=== PATIENT | female | born 1990 | race Caucasian/White ===

== ENCOUNTER → 2017-01-08 | Outpatient (CLI) | payer BC ==
[2017-01-08 21:08] LABS: BASO % 0.3 % (0.0-1.0); EOS # 0.1 K/mm3 (0.0-0.50); EOS % 0.9 % (0.0-3.0); LARGE UNSTAINED CELL # 0.2 K/mm3 (0.0-0.4); LARGE UNSTAINED CELL % 1.7 % (0.0-4.0); LYMPH # 2.8 K/mm3 (1.5-6.5); LYMPH % 31.4 % (24.0-44.0); MEAN CORPUSCULAR HEMOGLOBIN 29.8 pg (27.0-33.0); MEAN CORPUSCULAR HGB CONC 32.8 g/dl (32.0-36.5); MEAN CORPUSCULAR VOLUME 90.8 fl (80.0-96.0); MONO # 0.5 K/mm3 (0.0-0.8); MONO % 5.3 % (0.0-5.0); NEUTROPHILS # 5.1 K/mm3 (1.8-7.7); NEUTROPHILS % 60.3 % (36.0-66.0); PLATELET COUNT, AUTOMATED 251 k/mm3 (150-450); RED CELL DISTRIBUTION WIDTH 12.9 % (11.5-14.5); WHITE BLOOD COUNT 8.4 K/mm3 (4.0-10.0)
[2017-01-10 11:12] LABS: HBsAg Prenatal NEGATIVE (NEGATIVE)
[2017-01-10 14:22] LABS: HIV SCREEN CENTAUR NEGATIVE (NEGATIVE)
== END ==
LOC: M WUC 16:28
PROVIDERS: ATTEND Obstetrics & Gynecology
DX: Z34.81 Encounter for supervision of other normal pregnancy, first trimester (principal)

== ENCOUNTER 2017-01-11 08:20 | Emergency (ER) | payer BC, OTHER ==
[~2017-01-11] VITALS: Ht 165.1 cm; Wt 74.8 kg
[2017-01-11 09:42] LABS: MEAN CORPUSCULAR HEMOGLOBIN 30.1 pg (27.0-33.0); MEAN CORPUSCULAR HGB CONC 33.6 g/dl (32.0-36.5); MEAN CORPUSCULAR VOLUME 89.5 fl (80.0-96.0); RED CELL DISTRIBUTION WIDTH 12.9 % (11.5-14.5); WHITE BLOOD COUNT 7.5 K/mm3 (4.0-10.0)
--- NOTE | 2017-01-11 11:39 | REP ---
FIRST TRIMESTER ULTRASOUND: Real-time sonographic evaluation of gravid uterus performed utilizing transabdominal and endovaginal technique. There is a single living intrauterine gestation with estimated gestational age of 6 weeks 1 day based on a crown-rump length of 5 mm. EDC 09/05/2017. heart rate 103 beats per minute. Subchorionic hemorrhage is seen measuring 4 x 10 x 3 mm. Complic cystic structure of the right ovary probably represents a corpus luteum measuring 1.8 x 1.9 x 1.3 cm. Small paraovarian cyst is seen on the right approximately 1 cm in diameter. There is no evidence of right ovarian torsion, with blood flow seen in the right ovary with duplex Doppler evaluation. Signed by Harish Olivas MD 01/11/2017 04:51 P
[2017-01-11 12:04] VITALS: BP 117/67
== END 2017-01-11 12:12 | disposition home or self-care (01) ==
LOC: M ED 09:27
DX: O20.0 Threatened abortion (principal); Z3A.01 Less than 8 weeks gestation of pregnancy

== ENCOUNTER → 2017-02-16 | Outpatient (CLI) | payer BC, OTHER | LOC: M SMT 11:52 | PROVIDERS: ATTEND Specialist | DX: Z36 Encounter for antenatal screening of mother (principal) ==

== ENCOUNTER → 2017-04-13 | Outpatient (CLI) | payer BC, OTHER ==
--- NOTE | 2017-04-13 09:00 | REP ---
Clinical: Anatomical evaluation. Comparison: 01/11/2017 . Findings: Examination demonstrates a single live intrauterine in cephalic presentation. motion is identified by technologist. Placenta is noted posteriorly and grade zero without evidence for placenta previa or abruption. Amniotic fluid volume is normal. Cervix measures 3.5 cm in length and appears closed. No evidence for nuchal cord. Gestational age by LMP 19 weeks 1 day with STANLEY 09/06/2017 . Gestational age by current measurements 19 weeks 4 days with STANLEY 09/03/2017 . FHR equals 141 beats per minute. BPD 4.5 cm 19 weeks 4 days HC 17.3 cm 19 weeks 6 days AC 14.0 cm 19 weeks 3 days FL 3.1 cm 19 weeks 3 days HL 3.0 cm 19 weeks 5 days HC/AC ratio 1.23 Estimated weight 294 grams ( 60th percentile). Anatomical assessment demonstrates normal structures including cranium, choroid plexus, cavum, cerebellum/posterior fossa, facial features, lungs, diaphragm, stomach, three-vessel cord, kidneys/bladder, spine, and lower extremities. Impression: 1. Single live intrauterine in cephalic presentation demonstrating appropriate interval growth. 2. Limited evaluation of the heart/ventricular outflow tracts, cord insertion, and upper extremities may warrant reevaluation and follow-up. Remainder of the anatomical assessment is complete and normal. Signed by Arnoldo Lozano MD 04/13/2017 08:51 A
== END ==
LOC: M RAD 07:58
PROVIDERS: ATTEND Specialist
DX: Z34.82 Encounter for supervision of other normal pregnancy, second trimester (principal); Z3A.19 19 weeks gestation of pregnancy

== ENCOUNTER → 2017-05-04 | Outpatient (CLI) | payer BC, OTHER ==
--- NOTE | 2017-05-04 17:09 | REP ---
OB ULTRASOUND: Real-time sonographic evaluation of the gravid uterus is performed. There is a single living intrauterine gestation with an estimated gestational age of 22 weeks 1 days, EDC 09/06/2017. Today's measurements indicate appropriate growth. BPD 54 mm = 22 weeks 4 days, 62nd percentile HC 203 mm = 22 weeks 3 days, 59th percentile AC 176 mm = 22 weeks 4 days, 59th percentile FL 39 mm = 22 weeks 4 days, 61st percentile HC/AC ratio 1.15, within normal range. Estimated weight 511 grams, 59th percentile. Cervix is closed and measures 3.6 cm in length. heart rate 141 beats per minute. SEEN/GROSSLY UNREMARKABLE Lateral ventricles yes Posterior fossa yes Upper lip yes Four-chamber heart yes LVOT yes RVOT yes Stomach yes Cord insertion yes Three vessel cord yes Kidneys yes Bladder yes Spine no position: Breech. Placenta: Posterior and grade 1 with no previa or abruption. Amniotic fluid: Appears within normal limits. Signed by Harish Olivas MD 05/15/2017 08:36 A
== END ==
LOC: M RAD 15:29
PROVIDERS: ATTEND Advanced Practice Midwife
DX: Z34.82 Encounter for supervision of other normal pregnancy, second trimester (principal); Z3A.22 22 weeks gestation of pregnancy

== ENCOUNTER → 2017-06-15 | Outpatient (CLI) | payer BC, OTHER ==
[2017-06-15 13:35] LABS: MEAN CORPUSCULAR HGB CONC 32.4 g/dl (32.0-36.5); MEAN CORPUSCULAR VOLUME 92.4 fl (80.0-96.0); RED CELL DISTRIBUTION WIDTH 13.6 % (11.5-14.5); WHITE BLOOD COUNT 10.9 K/mm3 (4.0-10.0)
== END ==
LOC: M SMT 10:05
PROVIDERS: ATTEND Advanced Practice Midwife
DX: Z34.82 Encounter for supervision of other normal pregnancy, second trimester (principal)

== ENCOUNTER 2017-09-12 12:23 | Inpatient (IN) | payer BC, OTHER ==
[2017-09-12] VITALS (24 sets, daily range): BP systolic 100–142; BP diastolic 55–87
[~2017-09-12] VITALS: Ht 165.1 cm; Wt 87.5 kg
[2017-09-12] MEDS ORDERED: RANITADINE PO (12:50)
[2017-09-12] MEDS ORDERED: PRENTAB9 PO (12:50)
[2017-09-12] MEDS ORDERED: miSOPROStol 50 MCG 1/2 TAB (S0191) PO SCH (13:30)
[2017-09-12 14:31] LABS: MEAN CORPUSCULAR HEMOGLOBIN 29.5 pg (27.0-33.0); MEAN CORPUSCULAR HGB CONC 33.2 g/dl (32.0-36.5); PLATELET COUNT, AUTOMATED 172 10^3/uL (150-450); RED CELL DISTRIBUTION WIDTH 13.9 % (11.5-14.5); WHITE BLOOD COUNT 12.2 10^3/uL (4.0-10.0)
[2017-09-12] MEDS ORDERED: FENTANYL 2MCG/ML ROPIVACAINE 0.2% IN 0.9% NACL 200ML IVBAG As Ordered ONE (16:51)
[2017-09-12] MEDS ORDERED: REFRIGERATOR IV KEYS XX PRN (17:45)
[2017-09-12] MEDS ORDERED: NALOXONE INJ 0.4 MG/1 ML VIAL (J2310) IV PRN (17:45)
[2017-09-12] MEDS ORDERED: ePHEDrine SULFATE 25 MG/5 ML(5MG/ML) SYRINGE IV PRN (17:45)
[2017-09-12] MEDS ORDERED: FENTANYL/ROPIVACAINE/NACL BAG 200 ML EPIDURAL SCH (17:45)
[2017-09-12] MEDS ORDERED: EPIDURAL COMMENT XX SCH (17:45)
[2017-09-12] MEDS ORDERED: diphenhydrAMINE INJ 50MG/ML VIAL (J1200) IV PRN (17:45)
[2017-09-12] MEDS ORDERED: EPIDURAL/PCA KEYS XX PRN (17:45)
[2017-09-12] MEDS ORDERED: LACTATED RINGER'S 1000 ML IV PRN (17:45)
[2017-09-12] MEDS ORDERED: ONDANSETRON 4MG/2ML VIAL (J2405) IV PRN (17:45)
[2017-09-12] MEDS ORDERED: OXYTOCIN 30 UNITS IN 0.9% NaCl 500ML IV BAG (J2590) As Ordered ONE (17:54)
[2017-09-12] MEDS ORDERED: OXYTOCIN DRIP 30 UNITS in APPROPRIATE DILUENT 1 EA IV SCH (21:54)
[2017-09-12] MEDS ORDERED: DIBUCAINE 1% OINTMENT 30GM TOP PRN (22:00)
[2017-09-12] MEDS ORDERED: DOCUSATE SODIUM 100 MG CAP PO PRN (22:00)
[2017-09-12] MEDS ORDERED: METHYLERGONOVINE MALEATE 0.2 MG TAB PO PRN (22:00)
[2017-09-12] MEDS ORDERED: MEASLES,MUMPS,RUBELLA VACCINE INJ (MMR-II) (90707) SC SCH (22:00)
[2017-09-12] MEDS ORDERED: MOM 30ML SUSPENSION UDC PO PRN (22:00)
[2017-09-12] MEDS ORDERED: ANUSOL HC CREAM 30GM TOP PRN (22:00)
[2017-09-12] MEDS ORDERED: RHOGAM 300 MCG (1500 IU) INJ (J2790) IM SCH (22:00)
[2017-09-12] MEDS: ACETAMINOPHEN 500 MG TAB PO PRN (22:27)
[2017-09-13] VITALS (12 sets, daily range): BP systolic 91–122; BP diastolic 55–76
[2017-09-13] MEDS ORDERED: LR 1,000 ML IV SCH (01:15)
[2017-09-13] MEDS ORDERED: METHYLERGONOVINE MALEATE 0.2 MG TAB PO PRN (01:15)
[2017-09-13] MEDS ORDERED: METHYLERGONOVINE MALEATE 0.2 MG/ML VIAL (J2210) IV STA (01:15)
[2017-09-13] MEDS ORDERED: AMPICILLIN SOD/SULBACTAM SOD 3 GM in D5W MINI-BAG PLUS 100 ML IV ONE (01:15)
[2017-09-13] MEDS ORDERED: miSOPROStol 200 MCG TAB (S0191) PR ONE (01:15)
--- NOTE | 2017-09-13 01:36 | HPE ---
DATE OF ADMISSION: 09/12/2017 REASON FOR ADMISSION: Induction of labor. HISTORY OF PRESENT ILLNESS: Mrs. Ruiz is a 27-year-old 1, who presents at 40 weeks 6 days estimated gestational age by her last menstrual period confirmed by a first trimester ultrasound who comes in for induction of labor for post dates. Her course has been unremarkable. She initiated care in her first trimester and has been appropriate throughout. PAST MEDICAL HISTORY: None. PAST SURGICAL HISTORY: She has had tonsillectomy. PAST OBSTETRICAL HISTORY: She is a 1. MEDICATIONS: Include vitamins. ALLERGIES: She has no known drug allergies. SOCIAL HISTORY: She denies any alcohol, tobacco, or drug use during her . PHYSICAL EXAMINATION: VITAL SIGNS: Stable. She is afebrile. She has a category 1 heart rate tracing. GENERAL APPEARANCE: Well appearing, no acute distress. LUNGS: Clear to auscultation bilaterally. CARDIOVASCULAR: Heart is regular rate and rhythm. ABDOMEN: Gravid, nontender. Estimated weight (EFW) 3500 grams. CERVICAL EXAM: She is 2 cm dilated, 50% effaced, -2 station. LABORATORIES: Her blood type is O positive. Antibody screen is negative. Rubella is immune. RPR is nonreactive. Hepatitis surface antigen is negative. HIV is negative. Hepatitis C is nonreactive. Chlamydia and gonorrhea screens are negative. She had a normal 1-hour Glucola. She is group B Streptococcus (GBS) negative. ASSESSMENT: 1. Ms. Ruiz is a 27-year-old 1 at 40 weeks 6 days estimated gestational age here for induction of labor. 2. Reassuring status. PLAN: 1. Admit to labor and delivery. Complete blood count (CBC), RPR, type and screen, urine toxicology screen. 2. Patient has been thoroughly counseled in regards to induction of labor, medication, procedures performed in labor and delivery. She has verbally been consented for emergency surgery, blood products, anesthesia. She desires to proceed with admission. 3. Will initiate her induction with 50 mcg of oral misoprostol. MTDD
--- NOTE | 2017-09-13 01:41 | DN ---
DATE OF DELIVERY: 09/12/2017 TIME OF : 2119 GENDER: Male. SCORES: 8 and 9. WEIGHT: 8 pounds 5 ounces or 3760 grams. ANESTHESIA: Epidural. ESTIMATED BLOOD LOSS: 300 mL. LACERATIONS: Left labial laceration. COUNTS: Five laparotomy sponges accounted for prior to and after delivery. One sharp removed from delivery field. DELIVERY NOTE: On 09/12/2017 at 2120, Mrs. Ruiz, a 27-year-old 1, now para 1 had a spontaneous vaginal delivery of a liveborn male , scores 8 and 9, weight 8 pounds 5 ounces or 3760 grams. Head was delivered left occiput anterior (RODRIGO) over an intact perineum followed by delivery of right anterior shoulder, left posterior shoulder and corpus. was handed to mom with a good cry. Cord was clamped times two, was cut by the father of the baby under my direction. Cord blood was obtained. Placenta was drained and delivered grossly intact. A premixed bag of 500 mL of normal saline with 30 units of Pitocin was then bolused along with uterine massage until the uterus was firm. Upon inspection, there was a left labial laceration, which was repaired with 3-0 Vicryl Rapide. On re-inspection, cervix, vagina, and perineum were grossly intact and hemostatic. Mom and baby recovered in stable condition. The couple decided to name their son Altaf.
[2017-09-13] MEDS ORDERED: METHYLERGONOVINE MALEATE 0.2 MG/ML VIAL (J2210) IM ONE (01:45)
[2017-09-13] MEDS: IBUPROFEN 800 MG TAB PO PRN ×2 (03:31→18:14)
[2017-09-13] MEDS: METHYLERGONOVINE MALEATE 0.2 MG TAB PO SCH ×4 (06:21→18:13)
[2017-09-13 07:43] LABS: MEAN CORPUSCULAR HEMOGLOBIN 29.6 pg (27.0-33.0); MEAN CORPUSCULAR HGB CONC 33.7 g/dl (32.0-36.5); PLATELET COUNT, AUTOMATED 164 10^3/uL (150-450); RED CELL DISTRIBUTION WIDTH 13.9 % (11.5-14.5); WHITE BLOOD COUNT 13.3 10^3/uL (4.0-10.0)
[2017-09-13] MEDS: ACETAMINOPHEN 500 MG TAB PO PRN (08:16)
[2017-09-13] MEDS: PRENATAL VITAMINS CHEWABLE TABLET PO SCH (08:16)
[2017-09-14 06:00] VITALS: BP 98/54
[2017-09-14] MEDS: IBUPROFEN 800 MG TAB PO PRN (06:51)
[2017-09-14] MEDS ORDERED: COLA100C5 PO (08:50)
[2017-09-14] MEDS ORDERED: IBUP-1114 PO (08:50)
[2017-09-14] MEDS ORDERED: ACET50TA PO (08:50)
[2017-09-14] MEDS: PRENATAL VITAMINS CHEWABLE TABLET PO SCH (08:51)
[2017-09-14] MEDS: ACETAMINOPHEN 500 MG TAB PO PRN (12:58)
== END 2017-09-14 13:00 | disposition home or self-care (01) | DRG 560 ==
LOC: M LDI 12:23 → M OBS 09-13 06:04
PROVIDERS: ADMIT Obstetrics & Gynecology; ATTEND Obstetrics & Gynecology
PROC: 10E0XZZ Delivery of Products of Conception, External Approach (ICD-10-PCS; principal; 2017-09-12)
PROC: 0HQ9XZZ Repair Perineum Skin, External Approach (ICD-10-PCS; 2017-09-12)
PROC: 3E0DXGC Introduction of Other Therapeutic Substance into Mouth and Pharynx, External Approach (ICD-10-PCS; 2017-09-12)
DX: O48.0 Post-term pregnancy (principal); O70.0 First degree perineal laceration during delivery; Z37.0 Single live birth; Z3A.40 40 weeks gestation of pregnancy

== ENCOUNTER → 2017-09-20 | Outpatient (CLI) | payer BC, OTHER ==
[~2017-09-20] MED LIST: ACET50TA PO; COLA100C5 PO; IBUP-1114 PO; PRENTAB9 PO; RANI150T PO; RANITADINE PO
--- NOTE | 2017-09-20 13:29 | REP ---
RIGHT UPPER QUADRANT ULTRASOUND: Real-time sonographic evaluation of the right upper quadrant performed. Multiple gallstones are seen in the gallbladder without gallbladder wall thickening or pericholecystic fluid. There is no intrahepatic biliary dilatation. Common bile duct is upper limits of normal in diameter at 7 mm. Liver and pancreas are homogeneous with no gross mass. Right kidney demonstrates no hydronephrosis or nephrolithiasis with normal size at 11 cm in length. IMPRESSION: Multiple gallstones in the gallbladder without gallbladder wall thickening or free fluid. Common bile duct upper limits of normal at 7 mm. Signed by Harish Olivas MD 09/20/2017 01:32 P
== END ==
LOC: M RAD 11:29
PROVIDERS: ATTEND Family Medicine
DX: R10.9 Unspecified abdominal pain (principal)

== ENCOUNTER 2017-09-23 22:17 | Inpatient (IN) | payer BC, OTHER ==
[~2017-09-23] VITALS: Ht 165.1 cm; Wt 77.7 kg
[~2017-09-23 22:17] MED LIST changes: -RANI150T PO
[2017-09-23] MEDS ORDERED: METOCLOPRAMIDE INJ 10MG/2ML VIAL (J2765) IV ONE (23:45)
[2017-09-23] MEDS ORDERED: NS 500 ML IV ONE (23:45)
[2017-09-23] MEDS ORDERED: KETOROLAC 30 MG/ML VIAL (J1885) IV ONE (23:45)
[2017-09-23 23:58] LABS: BASO % 0.4 % (0.0-1.0); EOS # 0.1 10^3/uL (0.0-0.50); EOS % 0.4 % (0.0-3.0); IMMATURE GRANULOCYTE % 0.6 % (0-0); LYMPH # 1.5 10^3/uL (1.5-6.5); MEAN CORPUSCULAR HEMOGLOBIN 29.4 pg (27.0-33.0); MEAN CORPUSCULAR HGB CONC 33.2 g/dl (32.0-36.5); MEAN CORPUSCULAR VOLUME 88.5 fl (80.0-96.0); MONO # 0.7 10^3/uL (0.0-0.8); MONO % 6.4 % (0.0-5.0); NEUTROPHILS # 8.8 10^3/uL (1.8-7.7); NEUTROPHILS % 79.2 % (36.0-66.0); PLATELET COUNT, AUTOMATED 484 10^3/uL (150-450); RED CELL DISTRIBUTION WIDTH 14.2 % (11.5-14.5); WHITE BLOOD COUNT 11.2 10^3/uL (4.0-10.0)
[2017-09-24 00:22] LABS: ALBUMIN 3.4 GM/DL (3.2-5.2); ALBUMIN/GLOBULIN RATIO 0.83 (1.00-1.93); ALKALINE PHOSPHATASE 303 U/L (45-117); ALT/SGPT 501 U/L (12-78); ANION GAP 10 MEQ/L (8-16); AST/SGOT 313 U/L (7-37); BILIRUBIN,TOTAL 1.8 MG/DL (0.2-1.0); BLOOD UREA NITROGEN 7 MG/DL (7-18); CALCIUM LEVEL 9.3 MG/DL (8.5-10.1); CARBON DIOXIDE LEVEL 24 MEQ/L (21-32); CHLORIDE LEVEL 105 MEQ/L (98-107); CREATININE FOR GFR 0.68 MG/DL (0.55-1.02); GLOMERULAR FILTRATION RATE > 60.0 (>60); GLUCOSE, FASTING 98 MG/DL (70-105); POTASSIUM SERUM 3.7 MEQ/L (3.5-5.1); SODIUM LEVEL 139 MEQ/L (136-145); TOTAL PROTEIN 7.5 GM/DL (6.4-8.2)
[2017-09-24] MEDS ORDERED: MORPHINE 4 MG/ML 1ML SYRINGE IV ONE (00:30)
[2017-09-24 01:07] LABS: AMYLASE 6349 U/L (25-115)
--- NOTE | 2017-09-24 01:20 | REPUSA ---
CLINICAL HISTORY: Abdominal pain. TECHNIQUE: Realtime sonographic images were obtained in multiple projections. COMMENTS: Comparison to prior exam on 09/20/2017. Unchanged cholelithiasis. Increased diameter of the common bile duct which measures 10 mm on the current exam. The right kidney measures 10.7x5.3x3.9 cm. IMPRESSION: Unchanged cholelithiasis. Increased diameter of the common bile duct when compared to prior exam. No other change. Thank you for your kind referral of this patient.
[2017-09-24] MEDS ORDERED: RANI150T PO (01:32)
[2017-09-24] MEDS ORDERED: ISOVUE-370 76% 100ML VIAL (Q9967) As Ordered ONE (01:49)
[2017-09-24] MEDS ORDERED: NORCO, ANEXSIA 5/325MG TABLET (HYDROcodone/ACETAMINOPHEN) PO PRN (02:00)
[2017-09-24] MEDS ORDERED: ACETAMINOPHEN TAB 650MG DOSE (2X325MG) PO PRN (02:00)
[2017-09-24] MEDS ORDERED: ONDANSETRON 4MG/2ML VIAL (J2405) IV PRN (02:00)
[2017-09-24] MEDS ORDERED: KETOROLAC 30 MG/ML VIAL (J1885) IV PRN (02:00)
[2017-09-24] MEDS ORDERED: MORPHINE 4 MG/ML 1ML SYRINGE IV PRN (02:00)
--- NOTE | 2017-09-24 02:40 | REPUSA ---
CLINICAL HISTORY: Abdominal pain. TECHNIQUE: Multiple axial and coronal CT images were obtained through the abdomen and pelvis after ad ministration of intravenous contrast material. COMMENTS: Prominent peripancreatic inflammatory fat stranding. Mildly dilated biliary tree. Post gravid uterus. Mildly thickened bladder. The liver is of uniform attenuation without mass or defect. The spleen is normal. The gallbladder contains multiple gallstones. There is no evidence of adrenal mass. Both kidneys demonstrate prompt and equal nephrograms. The kidneys are normal in size, shape and conf iguration. There is no evidence of renal or ureteral mass. No renal or ureteral calculi are identifie d. There is no hydroureter or hydronephrosis. No evidence for appendicitis. There is no bowel wall thickening. No evidence for small or large bowel obstruction. There is no evidence of abdominal ascites or lymphadenopathy. There is no evidence of intrinsic or extrinsic bladder mass. There is no pelvic ascites or lymphadeno tor. Mildly thickened bladder. Post gravid uterus. Images of the lung bases show no evidence of pleural or parenchymal mass. There are no pleural effusi ons. The bony structures are free of lytic or blastic lesions. Moderate amount of fecal residue in the large bowels. IMPRESSION: Prominent peripancreatic inflammatory fat stranding. Mildly dilated biliary tree. Post gravid uterus. Mildly thickened bladder. Cholelithiasis. Thank you for your kind referral of this patient.
[2017-09-24 02:55] VITALS: BP 121/71
[2017-09-24] MEDS: LR 1,000 ML IV SCH ×4 (03:49→20:01)
[2017-09-24] MEDS: NORCO, ANEXSIA 5/325MG TABLET (HYDROcodone/ACETAMINOPHEN) PO PRN ×2 (03:49→21:10)
[2017-09-24 06:57] LABS: BASO % 0.3 % (0.0-1.0); EOS # 0.1 10^3/uL (0.0-0.50); EOS % 0.6 % (0.0-3.0); IMMATURE GRANULOCYTE % 0.8 % (0-0); MEAN CORPUSCULAR HEMOGLOBIN 29.3 pg (27.0-33.0); MEAN CORPUSCULAR HGB CONC 32.6 g/dl (32.0-36.5); MEAN CORPUSCULAR VOLUME 89.9 fl (80.0-96.0); MONO # 0.6 10^3/uL (0.0-0.8); NEUTROPHILS # 5.3 10^3/uL (1.8-7.7); NEUTROPHILS % 66.3 % (36.0-66.0); PLATELET COUNT, AUTOMATED 435 10^3/uL (150-450); RED CELL DISTRIBUTION WIDTH 14.4 % (11.5-14.5)
[2017-09-24 07:27] LABS: ALBUMIN 2.9 GM/DL (3.2-5.2); ALBUMIN/GLOBULIN RATIO 0.83 (1.00-1.93); ALKALINE PHOSPHATASE 249 U/L (45-117); ALT/SGPT 394 U/L (12-78); ANION GAP 12 MEQ/L (8-16); AST/SGOT 200 U/L (7-37); BLOOD UREA NITROGEN 7 MG/DL (7-18); CALCIUM LEVEL 8.3 MG/DL (8.5-10.1); CARBON DIOXIDE LEVEL 21 MEQ/L (21-32); CHLORIDE LEVEL 109 MEQ/L (98-107); CREATININE FOR GFR 0.59 MG/DL (0.55-1.02); GLOMERULAR FILTRATION RATE > 60.0 (>60); GLUCOSE, FASTING 71 MG/DL (70-105); POTASSIUM SERUM 3.6 MEQ/L (3.5-5.1); SODIUM LEVEL 142 MEQ/L (136-145); TOTAL PROTEIN 6.4 GM/DL (6.4-8.2)
[2017-09-24 08:17] LABS: AMYLASE 2642 U/L (25-115)
[2017-09-24 08:34] VITALS: BP 116/58
[2017-09-24] MEDS: PANTOPRAZOLE 40MG INJ (PROTONIX) (C9113) IV SCH (08:36)
[2017-09-24] MEDS: SENOKOT S TAB PO SCH ×2 (08:36→20:00)
[2017-09-24] MEDS: ENOXAPARIN 40 MG/0.4 ML SYRINGE (J1650) SC SCH (08:38)
--- NOTE | 2017-09-24 10:11 | HPEPDOC ---
General Surgery H&P Date of Admission Sep 24, 2017 Attending Physician: MARTHA SAM MD History and Physical CHIEF COMPLAINT: Abdominal pain HISTORY OF PRESENT ILLNESS: Patient is a 27-year-old female, recent , who presented herself to the emergency room with exacerbation of long-standing intermittent epigastric and right upper quadrant discomfort. Currently the patient she has always been having some intermittent epigastric pain even through her . She was given ranitidine with good results early. Her symptoms got exacerbated starting where she had some increased discomfort on her epigastric area that would not go away. She went to her primary care doctor who advised an ultrasound of her gallbladder which was done. This shows cholelithiasis. She was advised need for surgery at some point to remove her gallbladder. Her symptoms slightly abated Sunday and Sunday but worsened Sunday afternoon with markedly increased and sharp discomfort and pain on the epigastric area radiating to her right upper quadrant into her mid back area associated with nausea. This prompted her to seek consult in the emergency room she was found to have chemical evidence for pancreatitis, thus this admission. ALLERGIES: Please see below. HOME MEDICATIONS: Please see below. PAST MEDICAL HISTORY: 1. Dyspepsia 2. Cholelithiasis PAST SURGICAL HISTORY: 1. Tonsillectomy PERSONAL/SOCIAL HISTORY: [Denies smoking, alcohol use, or recreational drug use] . REVIEW OF SYSTEMS: GENERAL: [Denies chills, fatigue, fever, weight gain and weight loss]. Patient had recently given . Denies any post prandial problems. HEENT: [Denies blurred vision and double vision. Denies ear symptoms. Denies hoarseness]. NECK: [Denies any neck pain]. CARDIOVASCULAR: [Denies chest pain and palpitations]. MUSCULOSKELETAL: [Denies arthralgias, back pain and thrombophlebitis]. SKIN: [Denies rash]. NEUROLOGIC: [Denies headache, stroke and transient ischemic attack]. PSYCHIATRIC: [Denies anxiety and depression]. ENDOCRINE: [Denies thyroid disease]. HEMATOLOGY/ONCOLOGY: [Denies any bleeding or clotting disorder]. HEART: [Denies any chest pains, palpitations, paroxysmal dyspnea, orthopnea]. PULMONARY: [Denies chronic cough, dyspnea and wheezing]. GASTROINTESTINAL: [Denies rectal bleeding, family history of colon cancer, constipation, diarrhea, dysphagia, heartburn and jaundice]. GENITOURINARY: Recent . Patient is breast-feeding ENDOCRINE: [Denies polydipsia, polyphagia, polyuria, heat or cold intolerance]. INFECTIOUS: [Denies any recent upper respiratory tract infection, UTI, need for use of antibiotics]. NUTRITION: [Reports good appetite]. PHYSICAL EXAMINATION: VITAL SIGNS: Please see below. GENERAL APPEARANCE: [Patient seen at bedside, sitting, appears comfortable]. [ Awake, alert, oriented]. HEENT: [Normocephalic, atraumatic. [place] palpebral conjunctivae. Anicteric sclerae. Lips moist]. CHEST: [No chest wall abnormalities. Normal respiratory motion/effort]. NECK: [Supple. No thyromegaly. No lymphadenopathies]. LUNGS: [Lung sounds are clear to auscultation bilaterally. No wheezing appreciated]. HEART: [No chest wall abnormalities. Heart rate and rhythm are regular with no murmurs]. ABDOMEN: [Abdomen is slightly rounded, nondistended, soft. Minimally tender on palpation over the epigastric area and also at the right upper quadrant area without any rebound or guarding. Nontender in the left side of the abdomen. PERTINENT LABORATORY VALUES WBC 11.2 Total bilirubin 1.8 Direct bilirubin 1.0 AST 313 ALT 501 Alkaline phosphatase 303 CRP 1.15 Amylase 6349 Lipase 70,119 IMAGING: Right upper quadrant ultrasound Unchanged cholelithiasis. Increased diameter of the common bile duct when compared to prior exam. No other change. CT abdomen and pelvis with contrast Prominent peripancreatic inflammatory fat stranding. Mildly dilated biliary tree. Post gravid uterus. Mildly thickened bladder. The liver is of uniform attenuation without mass or defect. The spleen is normal. The gallbladder contains multiple gallstones. There is no evidence of adrenal mass. Both kidneys demonstrate prompt and equal nephrograms. The kidneys are normal in size, shape and configuration. There is no evidence of renal or ureteral mass. No renal or ureteral calculi are identified. There is no hydroureter or hydronephrosis. No evidence for appendicitis. There is no bowel wall thickening. No evidence for small or large bowel obstruction. There is no evidence of abdominal ascites or lymphadenopathy. There is no evidence of intrinsic or extrinsic bladder mass. There is no pelvic ascites or lymphadenopathy. Mildly thickened bladder. Post gravid uterus. Images of the lung bases show no evidence of pleural or parenchymal mass. There are no pleural effusions. The bony structures are free of lytic or blastic lesions. Moderate amount of fecal residue in the large bowels. IMRESSION AND PLAN: Acute pancreatitis secondary to gallstones Mildly elevated LFTs including bilirubin most likely from transient choledocholithiasis Choledocholithiasis Recent Patient has significant elevation of her amylase and lipase. Most likely this is fairly recent given high elevation of the amylase. I did a CT scan of the abdomen and pelvis to rule out pancreatic necrosis and there is no evidence of any necrosis of the pancreas. Patient actually feels somewhat better but it time I saw her. A second issue is the elevation of the LFTs including the bilirubin, increase in diameter of the common bile duct, pointing to possibility of choledocholithiasis. We will repeat the labs this morning and if this improves probably will not need any intervention for this safe for doing a intraoperative cholangiogram during the time of the cholecystectomy. If this remains elevated or increased, she might need an ERCP by the cold roll packer sheet iron though as have explained to the patient performing this increases the risk of exacerbating the pancreatitis. In terms of her pancreatitis, she appears comfortable, does not appear to have any extensive ileus, does not have any severe systemic inflammatory response as her pain has improved, we will start her on clear liquids today and see how she does. In terms of her gallbladder, I'll opt to wait to do an interval cholecystectomy in about 2-4 weeks time due to the pancreatic inflammation which may increase the difficulty as well as the risks of performing the surgery with no added acute benefit to her pain at this point. I did explain to her that she does have some fairly low risk of recurrence during the time that the cholecystectomy should be scheduled to evaluate less than 4-6 weeks, more likely she will not have any recurrence in between. In terms of her breast-feeding, she is pumping and dumping at this point. I advised her that she should hold off on breast-feeding up to 48 hours from the last dose of narcotic. Vital Signs Vital Signs Date Time Temp Pulse Resp B/P (MAP) Pulse Ox O2 Delivery O2 Flow Rate FiO2 09/24/17 08:34 98.2 82 16 116/58 (77) 98 Room Air Laboratory Data Labs 24H Laboratory Tests 2 09/23/17 23:49: Immature Granulocyte % (Auto) 0.6H, White Blood Count 11.2H, Red Blood Count 4.01, Hemoglobin 11.8L, Hematocrit 35.5L, Mean Corpuscular Volume 88.5, Mean Corpuscular Hemoglobin 29.4, Mean Corpuscular Hemoglobin Concent 33.2, Red Cell Distribution Width 14.2, Platelet Count 484H, Neutrophils (%) (Auto) 79.2H, Lymphocytes (%) (Auto) 13.0L, Monocytes (%) (Auto) 6.4H, Eosinophils (%) (Auto) 0.4, Basophils (%) (Auto) 0.4, Neutrophils # (Auto) 8.8H, Lymphocytes # (Auto) 1.5, Monocytes # (Auto) 0.7, Eosinophils # (Auto) 0.1, Basophils # (Auto) 0.0, Immature Granulocyte # (Auto) 0.1H, Nucleated Red Blood Cells % (auto) 0.0, Urine Appearance HAZY, Urine Color ANCA, Urine pH 5.0, Urine Specific [place] 1.014, Urine Protein NEGATIVE, Urine Glucose (UA) NEGATIVE, Urine Ketones 2+H, Urine Urobilinogen 2.0H, Urine Bilirubin NEGATIVE, Urine Leukocyte Esterase TRACEH, Urine Blood 3+H, Urine Nitrite NEGATIVE, Urine WBC (Auto) 5H, Urine RBC (Auto) 6H, Urine Hyaline Casts (Auto) 0, Urine Bacteria (Auto) NEGATIVE, Urine Squamous Epithelial Cells 1, Urine Mucus (Auto) SMALL, Urine Sperm (Auto) , Anion Gap 10, Glomerular Filtration Rate > 60.0, Calcium Level 9.3, Aspartate Amino Transf (AST/SGOT) 313H, Alanine Aminotransferase (ALT/SGPT) 501H, Alkaline Phosphatase 303H, Total Bilirubin 1.8H, Direct Bilirubin 1.0H, C- Reactive Protein, Quantitative 1.15H, Total Protein 7.5, Albumin 3.4, Albumin/ Globulin Ratio 0.83L, Amylase Level 6349H, Lipase [id number] 09/24/17 06:25: Immature Granulocyte % (Auto) 0.8H, White Blood Count 8.0, Red Blood Count 3.58L , Hemoglobin 10.5L, Hematocrit 32.2L, Mean Corpuscular Volume 89.9, Mean Corpuscular Hemoglobin 29.3, Mean Corpuscular Hemoglobin Concent 32.6, Red Cell Distribution Width 14.4, Platelet Count 435, Neutrophils (%) (Auto) 66.3H, Lymphocytes (%) (Auto) 25.0, Monocytes (%) (Auto) 7.0H, Eosinophils (%) (Auto) 0.6, Basophils (%) (Auto) 0.3, Neutrophils # (Auto) 5.3, Lymphocytes # (Auto) 2.0, Monocytes # (Auto) 0.6, Eosinophils # (Auto) 0.1, Basophils # (Auto) 0.0, Immature Granulocyte # (Auto) 0.1H, Nucleated Red Blood Cells % (auto) 0.0, Anion Gap 12, Glomerular Filtration Rate > 60.0, Calcium Level 8.3L, Aspartate Amino Transf (AST/SGOT) 200H, Alanine Aminotransferase (ALT/SGPT) 394H, Alkaline Phosphatase 249H, Total Bilirubin 1.0, Total Protein 6.4, Albumin 2.9L , Albumin/Globulin Ratio 0.83L, Amylase Level 2642H, Lipase 50048Z, Blood Urea Nitrogen 7, Creatinine 0.59, Sodium Level 142, Potassium Level 3.6, Chloride Level 109H, Carbon Dioxide Level 21 CBC/BMP Laboratory Tests 09/23/17 23:49 Red Blood Count 4.01, Mean Corpuscular Volume 88.5, Mean Corpuscular Hemoglobin 29.4, Mean Corpuscular Hemoglobin Concent 33.2, Red Cell Distribution Width 14.2 , Neutrophils (%) (Auto) 79.2 H, Lymphocytes (%) (Auto) 13.0 L, Monocytes (%) ( Auto) 6.4 H, Eosinophils (%) (Auto) 0.4, Basophils (%) (Auto) 0.4, Neutrophils # (Auto) 8.8 H, Lymphocytes # (Auto) 1.5, Monocytes # (Auto) 0.7, Eosinophils # (Auto) 0.1, Basophils # (Auto) 0.0 09/24/17 06:25 Red Blood Count 3.58 L, Mean Corpuscular Volume 89.9, Mean Corpuscular Hemoglobin 29.3, Mean Corpuscular Hemoglobin Concent 32.6, Red Cell Distribution Width 14.4, Neutrophils (%) (Auto) 66.3 H, Lymphocytes (%) (Auto) 25.0, Monocytes (%) (Auto) 7.0 H, Eosinophils (%) (Auto) 0.6, Basophils (%) ( Auto) 0.3, Neutrophils # (Auto) 5.3, Lymphocytes # (Auto) 2.0, Monocytes # (Auto ) 0.6, Eosinophils # (Auto) 0.1, Basophils # (Auto) 0.0, Calcium Level 8.3 L, Aspartate Amino Transf (AST/SGOT) 200 H, Alanine Aminotransferase (ALT/SGPT) 394 H, Alkaline Phosphatase 249 H, Total Bilirubin 1.0, Total Protein 6.4, Albumin 2.9 L Home Medications Scheduled Multivitamins/ ( 27-0.8 mg) 1 Tab Tab, 1 TAB PO DAILY, (Reported ) Scheduled PRN Acetaminophen (Mapap) 500 Mg Tab, 1,000 MG PO Q6H PRN for PAIN, (Reported) Docusate Sodium (Colace) 100 Mg Cap, 100 MG PO DAILY PRN for CONSTIPATION, ( Reported) Ranitidine HCl (Ranitidine HCl) 150 Mg Tab, 1 TAB PO BID PRN for HEARTBURN, ( Reported) Allergies Coded Allergies: No Known Allergies (Verified Allergy, Unknown, 04/13/03) MARTHA SAM MD Sep 24, 2017 10:11
[2017-09-24 12:30] VITALS: BP 102/60
[2017-09-24 20:00] VITALS: BP 115/67
[2017-09-25] VITALS: BP 104/57
[2017-09-25] MEDS: LR 1,000 ML IV SCH (04:28)
[2017-09-25 07:06] LABS: BASO % 0.4 % (0.0-1.0); EOS # 0.2 10^3/uL (0.0-0.50); EOS % 1.6 % (0.0-3.0); IMMATURE GRANULOCYTE % 0.8 % (0-0); LYMPH # 2.3 10^3/uL (1.5-6.5); LYMPH % 24.7 % (24.0-44.0); MEAN CORPUSCULAR HEMOGLOBIN 28.3 pg (27.0-33.0); MEAN CORPUSCULAR HGB CONC 31.9 g/dl (32.0-36.5); MEAN CORPUSCULAR VOLUME 88.6 fl (80.0-96.0); MONO # 0.6 10^3/uL (0.0-0.8); MONO % 6.7 % (0.0-5.0); NEUTROPHILS % 65.8 % (36.0-66.0); PLATELET COUNT, AUTOMATED 394 10^3/uL (150-450); RED CELL DISTRIBUTION WIDTH 14.4 % (11.5-14.5); WHITE BLOOD COUNT 9.1 10^3/uL (4.0-10.0)
[2017-09-25 07:26] LABS: ALBUMIN 2.5 GM/DL (3.2-5.2); ALBUMIN/GLOBULIN RATIO 0.81 (1.00-1.93); ALKALINE PHOSPHATASE 199 U/L (45-117); ALT/SGPT 256 U/L (12-78); ANION GAP 12 MEQ/L (8-16); AST/SGOT 77 U/L (7-37); BILIRUBIN,TOTAL 0.7 MG/DL (0.2-1.0); BLOOD UREA NITROGEN 5 MG/DL (7-18); CALCIUM LEVEL 8.2 MG/DL (8.5-10.1); CARBON DIOXIDE LEVEL 20 MEQ/L (21-32); CHLORIDE LEVEL 111 MEQ/L (98-107); CREATININE FOR GFR 0.42 MG/DL (0.55-1.02); GLOMERULAR FILTRATION RATE > 60.0 (>60); GLUCOSE, FASTING 59 MG/DL (70-105); POTASSIUM SERUM 3.9 MEQ/L (3.5-5.1); SODIUM LEVEL 143 MEQ/L (136-145); TOTAL PROTEIN 5.6 GM/DL (6.4-8.2)
[2017-09-25 08:57] VITALS: BP 117/64
[2017-09-25] MEDS: PANTOPRAZOLE 40MG INJ (PROTONIX) (C9113) IV SCH (09:00)
[2017-09-25] MEDS: SENOKOT S TAB PO SCH ×2 (09:00→21:00)
[2017-09-25] MEDS: ENOXAPARIN 40 MG/0.4 ML SYRINGE (J1650) SC SCH (09:12)
[2017-09-25 16:00] VITALS: BP 117/79
[2017-09-25 20:00] VITALS: BP 114/65
[2017-09-26] VITALS: BP 129/57
[2017-09-26 07:15] LABS: BASO % 0.3 % (0.0-1.0); EOS # 0.1 10^3/uL (0.0-0.50); EOS % 1.7 % (0.0-3.0); IMMATURE GRANULOCYTE % 0.7 % (0-0); LYMPH # 1.9 10^3/uL (1.5-6.5); LYMPH % 26.7 % (24.0-44.0); MEAN CORPUSCULAR HEMOGLOBIN 28.8 pg (27.0-33.0); MEAN CORPUSCULAR HGB CONC 32.8 g/dl (32.0-36.5); MEAN CORPUSCULAR VOLUME 87.9 fl (80.0-96.0); MONO # 0.5 10^3/uL (0.0-0.8); MONO % 6.9 % (0.0-5.0); NEUTROPHILS # 4.6 10^3/uL (1.8-7.7); NEUTROPHILS % 63.7 % (36.0-66.0); PLATELET COUNT, AUTOMATED 404 10^3/uL (150-450); RED CELL DISTRIBUTION WIDTH 14.3 % (11.5-14.5); WHITE BLOOD COUNT 7.2 10^3/uL (4.0-10.0)
[2017-09-26 07:32] LABS: ALBUMIN 2.6 GM/DL (3.2-5.2); ALBUMIN/GLOBULIN RATIO 0.74 (1.00-1.93); ALKALINE PHOSPHATASE 181 U/L (45-117); ALT/SGPT 196 U/L (12-78); ANION GAP 9 MEQ/L (8-16); AST/SGOT 34 U/L (7-37); BILIRUBIN,TOTAL 0.5 MG/DL (0.2-1.0); BLOOD UREA NITROGEN 6 MG/DL (7-18); CALCIUM LEVEL 8.2 MG/DL (8.5-10.1); CARBON DIOXIDE LEVEL 24 MEQ/L (21-32); CHLORIDE LEVEL 110 MEQ/L (98-107); CREATININE FOR GFR 0.54 MG/DL (0.55-1.02); GLOMERULAR FILTRATION RATE > 60.0 (>60); GLUCOSE, FASTING 87 MG/DL (70-105); POTASSIUM SERUM 3.4 MEQ/L (3.5-5.1); SODIUM LEVEL 143 MEQ/L (136-145); TOTAL PROTEIN 6.1 GM/DL (6.4-8.2)
[2017-09-26 08:00] VITALS: BP 116/58
[2017-09-26] MEDS: SENOKOT S TAB PO SCH (08:34)
[2017-09-26] MEDS: ENOXAPARIN 40 MG/0.4 ML SYRINGE (J1650) SC SCH (08:34)
== END 2017-09-26 10:50 | disposition home or self-care (01) | DRG 282 ==
LOC: M ED 22:17 → M ED INP 09-24 01:48 → M PED 09-24 02:50
PROVIDERS: ADMIT Surgery; ATTEND Surgery
DX: K85.90 Acute pancreatitis without necrosis or infection, unspecified (principal); K80.20 Calculus of gallbladder without cholecystitis without obstruction; Z79.899 Other long term (current) drug therapy

== ENCOUNTER 2017-10-22 12:23 | Day surgery (SDC) | payer BC, OTHER ==
[2017-10-22] MEDS: LR 1,000 ML IV (12:45)
[2017-10-22] MEDS ORDERED: LIDOCAINE 1% MDV 20ML VIAL SQ (12:45)
[2017-10-22 13:19] LABS: CONTROL LINE UCG INT CTR LINE PRESENT; URINE PREG TEST NEGATIVE (NEGATIVE)
[2017-10-22] MEDS ORDERED: fentaNYL 100 MCG/2 ML INJECTION (J3010) As Ordered (14:01)
[2017-10-22] MEDS ORDERED: MIDAZOLAM INJ 2 MG/2 ML VIAL (J2250) As Ordered (14:01)
[2017-10-22] MEDS: AMPICILLIN SOD/SULBACTAM SOD 3 GM in D5W MINI-BAG PLUS 100 ML IV (15:02)
[2017-10-22] MEDS: CONRAY-60 60% 50ML VIAL (Q9961) As Ordered (16:00)
[2017-10-22] MEDS: BUPIVACAINE HCL 0.25% 30 ML VIAL As Ordered (16:05)
[2017-10-22] MEDS: LIDOCAINE 1% SDV INJ 30 ML VIAL As Ordered (16:05)
[2017-10-22] MEDS: PERCOCET 5MG/325MG TAB PO ×2 (16:39→17:19)
[2017-10-22] MEDS ORDERED: fentaNYL 100 MCG/2 ML INJECTION (J3010) IV (16:45)
[2017-10-22] MEDS ORDERED: NORCO, ANEXSIA 5/325MG TABLET (HYDROcodone/ACETAMINOPHEN) PO ×2 (16:45)
[2017-10-22] MEDS ORDERED: ONDANSETRON 4MG/2ML VIAL (J2405) IV ×2 (16:45)
[2017-10-22] MEDS ORDERED: LR 1,000 ML IV (16:45)
[2017-10-22] MEDS ORDERED: HYDROmorphone HCL 1 MG/ML SYRINGE (J1170) IV (16:45)
[2017-10-22] MEDS ORDERED: KETOROLAC 30 MG/ML VIAL (J1885) IV (17:00)
== END 2017-10-22 19:05 | disposition home or self-care (01) ==
LOC: M SDC 19:05
DX: K80.12 Calculus of gallbladder with acute and chronic cholecystitis without obstruction (principal); Z87.19 Personal history of other diseases of the digestive system; K21.9 Gastro-esophageal reflux disease without esophagitis; Z79.899 Other long term (current) drug therapy
CPT/HCPCS: 47563

== ENCOUNTER → 2019-08-01 | Outpatient (CLI) | payer OTHER ==
[~2019-08-01] MED LIST changes: -ACET50TA PO; +MAPA500T2 PO; +NORC1TAB7 PO; +RANI150T PO
[2019-08-01 13:11] LABS: BASO % 0.6 % (0.0-1.0); EOS # 0.1 10^3/uL (0.0-0.5); EOS % 1.1 % (0.0-3.0); HEMATOCRIT 44.1 % (36.0-47.0); HEMOGLOBIN 14.4 g/dl (12.0-15.5); LYMPH # 2.1 10^3/uL (1.5-5.0); LYMPH % 29.1 % (24.0-44.0); MEAN CORPUSCULAR HEMOGLOBIN 29.6 pg (27.0-33.0); MEAN CORPUSCULAR HGB CONC 32.7 g/dl (32.0-36.5); MEAN CORPUSCULAR VOLUME 90.6 fl (80.0-96.0); MONO # 0.6 10^3/uL (0.0-0.8); MONO % 8.3 % (0.0-5.0); NEUTROPHILS # 4.3 10^3/uL (1.5-8.5); NEUTROPHILS % 60.2 % (36.0-66.0); PLATELET COUNT, AUTOMATED 283 10^3/uL (150-450); RED BLOOD COUNT 4.87 10^6/uL (4.00-5.40); WHITE BLOOD COUNT 7.2 10^3/uL (4.0-10.0)
[2019-08-01 14:25] LABS: HIV 1&2 SCREEN CENTAUR NEGATIVE (NEGATIVE); RUBELLA IgG QUALITATIVE IMMUNE (IMMUNE)
[2019-08-01 15:06] LABS: CHLAMYDIA DNA AMPLIFICATION NEGATIVE (NEGATIVE); GC DNA AMPLIFICATION NEGATIVE (NEGATIVE)
== END ==
LOC: M SMT 10:47
PROVIDERS: ATTEND Obstetrics & Gynecology
DX: Z34.81 Encounter for supervision of other normal pregnancy, first trimester (principal); Z36.89 Encounter for other specified antenatal screening

== ENCOUNTER → 2019-11-28 | Outpatient (CLI) | payer OTHER ==
[2019-11-28 16:01] LABS: MEAN CORPUSCULAR HEMOGLOBIN 29.7 pg (27.0-33.0); MEAN CORPUSCULAR HGB CONC 31.7 g/dl (32.0-36.5); MEAN CORPUSCULAR VOLUME 93.6 fl (80.0-96.0); PLATELET COUNT, AUTOMATED 198 10^3/uL (150-450); RED BLOOD COUNT 4.38 10^6/uL (4.00-5.40); WHITE BLOOD COUNT 10.3 10^3/uL (4.0-10.0)
== END ==
LOC: M PLALAB 09:31
PROVIDERS: ATTEND Advanced Practice Midwife
DX: Z34.82 Encounter for supervision of other normal pregnancy, second trimester (principal); Z3A.00 Weeks of gestation of pregnancy not specified

== ENCOUNTER → 2020-01-21 | Outpatient (REF) | payer OTHER | LOC: M SFHCWAGY 17:04 | PROVIDERS: ATTEND Specialist | DX: Z36.89 Encounter for other specified antenatal screening (principal); Z3A.00 Weeks of gestation of pregnancy not specified ==

== ENCOUNTER 2020-02-23 13:57 | Inpatient (IN) | payer BC, OTHER ==
[~2020-02-23] VITALS: Ht 165.1 cm; Wt 90.6 kg
[2020-02-23] VITALS (26 sets, daily range): BP systolic 98–143; BP diastolic 57–108
[2020-02-23] MEDS ORDERED: TUMS500C PO (14:25)
[2020-02-23] MEDS ORDERED: LACTATED RINGER'S 1000 ML IV STA (14:37)
[2020-02-23] MEDS ORDERED: LR 1,000 ML IV SCH (14:37)
--- NOTE | 2020-02-23 14:41 | HPEPDOC ---
Obstetrical History & Physical General Date of Admission 02/23/2020 Primary Care Physician: JENNIFER SUTTON CNM History of Present Illness Patient is a 29-year-old female who is a at 40.3 weeks gestation with an STANLEY of 02/20/20 based off of her LMP and consistent with her first trimester ultrasound. She initiated care in her first trimester with [facility]. Her has been uncomplicated. She presents to L&D in active labor. She reports regular painful contractions, bloody show and movement. She denies leaking of fluid. Chief Complaint: Active Labor Information Provided By: Patient Age: 29 : 2 Term: 1 Pre-term: 0 Abortions: 0 Livin Care Care: Good Care Dating Final EDC: February 20, 2020 EGA at Admission: 40.3 Antepartum Course Height (inches): 65 Pre- weight (lbs.): 179 Admission Weight (lbs.): 200 Change in Weight (lbs.): 21 Past Medical History Past Obstetrical History : Past Obstetrical History: Primgravida Date of Delivery: Sep 07, 2017 Gestation: 41 Type of Delivery: Spontaneous Vaginal Del. Sex of : Male ( weight: 8 lbs 8 oz) Complications: Yes ( hemorrhage) Past Medical History Medical History History of pancreatitis Surgical History: Appendectomy, Gallbladder, Tonsilectomy Family History Significant Family History: No pertinent family hx Social History Marital Status: Family situation: Spouse/partner home Psychosocial History: No pertinent psych hx * Smoker: non-smoker Alcohol: Denies Drugs: denies Abuse Violence Screening Have you been hit/kicked/slapp: No Have you been sexually assault: No Allergies Coded Allergies: No Known Allergies (Verified , 04/13/03) Medications Scheduled Calcium Carbonate (Tums) 200 Mg Tab.chew, 2 TAB PO QID for cough and congestion No.137/Iron/Folic Acd ( Vitamin Tablet) 1 Tab Tab, 1 TAB PO DAILY Scheduled PRN Acetaminophen (Mapap) 500 Mg Tab, 1,000 MG PO Q6H PRN for PAIN Docusate Sodium (Colace) 100 Mg Cap, 100 MG PO DAILY PRN for CONSTIPATION Physical Examination Physical Examination GENERAL: Alert and oriented times three. BREAST: . ABDOMEN: Gravid and non-tender to touch. FETUS: Is vertex (VTX) by sterile vaginal examination (SVE), fetus is vertex (VTX) by [place]. HEART RATE: Regular rate and rhythm. LUNGS: Clear to auscultation (CTA). EXTREMITIES: No edema. No clonus. Deep tendon reflexes (DTRs) + 2. Vital Signs/I&O Vital Signs Date Time Temp Pulse Resp B/P (MAP) Pulse Ox O2 Delivery O2 Flow Rate FiO2 02/23/20 14:17 97.4 119 18 117/78 (91) Laboratory Data Urine Culture: No Growth Pertinent Laboratoy Data Blood Type: O+ RBC Antibody Screen: Negative HIV: Negative Hepatitis B: Negative Hepatitis C: Negative Rapid Plasma Reagin: Nonreactive Rubella: Immune Chlamydia/Gonorrhea: Negative Group B Streptococcus: Negative Glucose Tolerance Test: 74 Vaginal Examination Dilation: 4 cm (4-5 cm) Effacement: 90% Station: -1 Cervical Consistency: Soft Cervical Position: Anterior Presentation: Cephalic presentation Position: Vertex (occiput) Assessment Heart Rate (FHR): 130 Variability: Moderate Accelerations: Positive Decelerations: None Tocometer Contractions: Yes Frequency: regular Strength: palpated as mod/strong Multi-drug resistant Organism: No history of MDRO Assessment/Plan Assessment IUP at 40.3 weeks gestation Category I FHR tracing active labor GBS negative Plan Admit to L&D. OOB ad gume. Diet: clears. Group B Streptococcus (GBS) negative. Labs and intravenous (IV) per unit protocol. Anesthesia consult per patient's request. Lactated Ringers (LR): Bolus 800 mL, then at 125 mL/hr. Anticipate cervical change and . C-S as appropriate. JENNIFER SUTTON CNM February 23, 2020 14:41
[2020-02-23] MEDS ORDERED: fentaNYL 100 MCG/2 ML INJECTION (J3010) As Ordered ONE (15:09)
[2020-02-23] MEDS ORDERED: FENTANYL 2MCG/ML ROPIVACAINE 0.2% IN 0.9% NACL 100ML IVBAG As Ordered ONE (15:10)
[2020-02-23 15:21] LABS: HEMATOCRIT 39.5 % (36.0-47.0); HEMOGLOBIN 12.8 g/dl (12.0-15.5); MEAN CORPUSCULAR HEMOGLOBIN 27.5 pg (27.0-33.0); MEAN CORPUSCULAR HGB CONC 32.4 g/dl (32.0-36.5); MEAN CORPUSCULAR VOLUME 84.9 fl (80.0-96.0); PLATELET COUNT, AUTOMATED 203 10^3/uL (150-450); RED BLOOD COUNT 4.65 10^6/uL (4.00-5.40); WHITE BLOOD COUNT 12.4 10^3/uL (4.0-10.0)
[2020-02-23] MEDS ORDERED: REFRIGERATOR IV KEYS XX PRN (17:00)
[2020-02-23] MEDS ORDERED: EPIDURAL/PCA KEYS XX PRN (17:00)
[2020-02-23] MEDS ORDERED: diphenhydrAMINE 50MG/ML VIAL (J1200) IV PRN (17:00)
[2020-02-23] MEDS ORDERED: LACTATED RINGER'S 1000 ML IV PRN (17:00)
[2020-02-23] MEDS ORDERED: FENTANYL/ROPIVACAINE/NACL BAG 100 ML EPIDURAL SCH (17:00)
[2020-02-23] MEDS ORDERED: EPIDURAL COMMENT XX SCH (17:00)
[2020-02-23] MEDS ORDERED: NALOXONE INJ 0.4MG/1ML VIAL (J2310 PER 1MG) IV PRN (17:00)
[2020-02-23] MEDS ORDERED: ePHEDrine SULFATE 25 MG/5 ML(5MG/ML) SYRINGE IV PRN (17:00)
[2020-02-23] MEDS ORDERED: ONDANSETRON 4MG/2ML VIAL IV PRN (17:00)
[2020-02-23] MEDS ORDERED: OXYTOCIN 30 UNITS IN 0.9% NaCl 500ML IV BAG (J2590) As Ordered ONE (18:11)
[2020-02-23] MEDS ORDERED: OXYTOCIN DRIP 30 UNITS in IV 1 EA IV SCH (18:39)
[2020-02-23] MEDS ORDERED: IBUPROFEN 600MG TAB PO PRN (18:45)
[2020-02-23] MEDS ORDERED: IBUPROFEN 800 MG TAB PO PRN (18:45)
[2020-02-23] MEDS ORDERED: MEASLES,MUMPS,RUBELLA VACCINE INJ (MMR-II) (90707) SC SCH (18:45)
[2020-02-23] MEDS ORDERED: DIBUCAINE 1% OINTMENT 30GM TOP PRN (18:45)
[2020-02-23] MEDS ORDERED: METHYLERGONOVINE MALEATE 0.2 MG TAB PO PRN (18:45)
[2020-02-23] MEDS ORDERED: ACETAMINOPHEN TAB 650MG DOSE (2X325MG) PO PRN (18:45)
[2020-02-23] MEDS ORDERED: RHOGAM 300 MCG (1500 IU) INJ (J2790) IM SCH (18:45)
[2020-02-23] MEDS ORDERED: ANUSOL HC CREAM 30GM TOP PRN (18:45)
--- NOTE | 2020-02-23 19:51 | DNPDOC ---
[facility] Delivery Note Delivery Note DATE OF DELIVERY: 02/23/20 at 1822 PREDELIVERY DIAGNOSIS: 40-3/7 weeks' gestation and labor. POST DELIVERY DIAGNOSIS: Delivered. PROCEDURE: Spontaneous vaginal delivery. [employer]: Jennifer Neville CNM, LINNEA ANESTHESIA: epidural. ESTIMATED BLOOD LOSS: 200 mL. FINDINGS: 8 pounds 4 ounces; 3740 grams; male , Score 8/9, nuchal cord times 1 tight, spontaneous left clavicle fracture. DELIVERY SUMMARY: Patient is a 29-year-old female who is now a who presented to L&D in active labor. She received an epidural for pain management. The patient progressed to fully dilated at 181 and pushed to a living male in the DERICK position with restitution to ROT. A tight nuchal cord was noted and not reduced. The anterior shoulder delivered spontaneously and the posterior shoulder delivered with gentle upward traction. The corpus immediately followed and the baby was placed on the maternal abdomen active and crying with stimulation. The cord was clamped x2 after pulsation ceased and cut by the FOB. A 3-vessel cord was noted. The placenta delivered spontaneously and intact at 1826. Uterine hemostasis was achieved via rapid infusion of IV Pitocin and fundal massage. The vagina, cervix, and perineum was inspected and found to be intact. Mom plans to formula feed. They are naming him Solis. Both mom and baby are in stable condition. All counts of instruments and sponges are correct. JENNIFER NEVILLE CNM February 23, 2020 19:51
[2020-02-24] MEDS: ACETAMINOPHEN 500 MG TAB PO PRN ×2 (01:59→16:46)
[2020-02-24 04:49] VITALS: BP 105/68
[2020-02-24 05:58] VITALS: BP 107/51
[2020-02-24] MEDS: PRENATAL VITAMINS CHEWABLE TABLET PO SCH (07:27)
[2020-02-24 08:31] VITALS: BP 99/60
--- NOTE | 2020-02-24 13:36 | IPNPDOC ---
Progress Note Date of Service: February 24, 2020 Day#: 1 Progress Note SUBJECT: Patient is a 29-year-old female who is now a who presented to L&D in active labor at 40 weeks 3 days gestation. She had a spontaneous delivery of a living male that weighed 8 lbs 4 oz at 1822 02/23/20. She does report discomfort with hemorrhoids. Reviewed comfort measures and medication that has been ordered for her to continue to use. She reports she is voiding and ambulating without difficulty. She is formula feeding with no issues. OBJECTIVE: VITAL SIGNS: Within normal limits, afebrile. Alert and oriented times three. Breath sounds clear to auscultation. Heart rate: Regular rate and rhythm, no murmurs, rubs or gallops. Abdomen: Fundus firm at U-2. Soft, NTTP. Minimal lochia. Perineum intact with inflamed hemorrhoids. ASSESSMENT: Day 1 PLAN: 1. Continue with supportive nursing care. 2. Anticipate discharge to home tomorrow. 3. Neonatology to see for circumcision and for clavicle fracture. [facility] Vital Signs/I&O Vital Signs Date Time Temp Pulse Resp B/P (MAP) Pulse Ox O2 Delivery O2 Flow Rate FiO2 02/24/20 08:31 81 99/60 (73) 02/24/20 05:58 98.1 18 I&O- Last 24 Hours up to 6 AM 02/24/20 06:00 Intake Total 1579 ml Output Total 400 ml Balance 1179 ml Laboratory Data 24H LABS Laboratory Tests 2 02/23/20 14:54: Serology Scanned Report Hepatitis B Testing 02/23/20 14:55: Nucleated Red Blood Cells % (auto) 0.0, Syphilis Serology NONREACTIVE CBC/BMP Laboratory Tests 02/23/20 14:55 JENNIFER SUTTON CNM February 24, 2020 13:36
[2020-02-24 18:00] VITALS: BP 110/71
[2020-02-24] MEDS: DOCUSATE SODIUM 100MG CAPSULE PO PRN (19:37)
[2020-02-25 06:14] VITALS: BP 120/75
[2020-02-25] MEDS ORDERED: MOM 30ML SUSPENSION UDC PO PRN (07:45)
[2020-02-25] MEDS: DOCUSATE SODIUM 100MG CAPSULE PO PRN (07:49)
[2020-02-25] MEDS: PRENATAL VITAMINS CHEWABLE TABLET PO SCH (07:49)
== END 2020-02-25 10:25 | disposition home or self-care (01) | DRG 560 ==
LOC: M LDO 13:57 → M LDI 14:42 → M OBS 20:39
PROVIDERS: ADMIT Advanced Practice Midwife; ATTEND Advanced Practice Midwife
PROC: 10E0XZZ Delivery of Products of Conception, External Approach (ICD-10-PCS; principal; 2020-02-23)
DX: O48.0 Post-term pregnancy (principal); O69.89X0 Labor and delivery complicated by other cord complications, not applicable or unspecified; Z37.0 Single live birth; Z3A.40 40 weeks gestation of pregnancy

== ENCOUNTER → 2021-02-18 | Outpatient (REF) | payer OTHER ==
[~2021-02-18] MED LIST changes: +TUMS500C PO
== END ==
LOC: M SFHCWAGY 12:53
PROVIDERS: ATTEND Advanced Practice Midwife
DX: Z12.4 Encounter for screening for malignant neoplasm of cervix (principal)
CPT/HCPCS: 87624; G0123

== ENCOUNTER → 2023-04-18 | Outpatient (CLI) | payer OTHER ==
[2023-04-18 11:10] LABS: BASO # 0.1 10^3/uL (0.0-0.2); BASO % 0.9 % (0.0-1.0); EOS # 0.1 10^3/uL (0.0-0.5); EOS % 1.7 % (0.0-3.0); HEMATOCRIT 45.1 % (36.0-47.0); HEMOGLOBIN 14.4 g/dl (12.0-15.5); LYMPH # 1.9 10^3/uL (1.5-5.0); MEAN CORPUSCULAR HEMOGLOBIN 29.2 pg (27.0-33.0); MEAN CORPUSCULAR HGB CONC 31.9 g/dl (32.0-36.5); MEAN CORPUSCULAR VOLUME 91.5 fl (80.0-96.0); MONO # 0.5 10^3/uL (0.0-0.8); NEUTROPHILS # 3.1 10^3/uL (1.5-8.5); PLATELET COUNT, AUTOMATED 250 10^3/uL (150-450); RED BLOOD COUNT 4.93 10^6/uL (4.00-5.40); WHITE BLOOD COUNT 5.8 10^3/uL (4.0-10.0)
[2023-04-18 11:46] LABS: THYROID STIMULATING HORMONE 1.267 uIU/ML (0.55-4.78)
[2023-04-18 11:51] LABS: ALBUMIN 4.2 G/DL (3.2-5.2); ALKALINE PHOSPHATASE 56 U/L (46-116); ALT/SGPT < 9 U/L (7.0-40); AST/SGOT < 8 U/L (<34); BILIRUBIN,TOTAL 0.8 MG/DL (0.3-1.2); BLOOD UREA NITROGEN 12 MG/DL (9-23); CALCIUM LEVEL 10.1 MG/DL (8.5-10.1); CARBON DIOXIDE LEVEL 25 MMOL/L (20-31); CHLORIDE LEVEL 108 MMOL/L (98-107); CHOLESTEROL LEVEL 157 MG/DL (<200); CHOLESTEROL RISK RATIO 2.52 (<5); CREATININE FOR GFR 0.67 MG/DL (0.55-1.30); GLOMERULAR FILTRATION RATE > 60.0 (>60); GLUCOSE, FASTING 95 MG/DL (60-100); HDL CHOLESTEROL 62.1 MG/DL (>40); LDL CHOLESTEROL 82.9 MG/DL (<100); NON-HDL-C 94.9 MG/DL; SODIUM LEVEL 140 MMOL/L (136-145); TOTAL PROTEIN 6.7 G/DL (5.7-8.2); TRIGLYCERIDES LEVEL 60 MG/DL (<150)
== END ==
LOC: M PLALAB 08:13
PROVIDERS: ATTEND Family Medicine
DX: Z13.0 Encounter for screening for diseases of the blood and blood-forming organs and certain disorders involving the immune mechanism (principal); Z13.29 Encounter for screening for other suspected endocrine disorder; Z13.220 Encounter for screening for lipoid disorders

== ENCOUNTER → 2024-07-23 | Outpatient (REF) | payer BC ==
[2024-07-25 14:37] LABS: HPV APTIMA Not Detected (Not Detected)
== END ==
LOC: M PLALAB 14:03
PROVIDERS: ATTEND Advanced Practice Midwife
DX: Z12.4 Encounter for screening for malignant neoplasm of cervix (principal); Z11.51 Encounter for screening for human papillomavirus (HPV)
CPT/HCPCS: 87624; G0123

== ENCOUNTER 2024-10-23 11:45 | Day surgery (SDC) | payer BC ==
[~2024-10-23] VITALS: Ht 165.1 cm; Wt 75.9 kg
[2024-10-23] MEDS: LIDOCAINE 3.5 % 1ML OPHTH TOPICAL GEL OU ONE (06:00)
[2024-10-23] MEDS ORDERED: THERTAB52 PO (12:16)
[2024-10-23] MEDS ORDERED: MIDAZOLAM INJ 2MG/2ML VIAL As Ordered ONE (13:17)
[2024-10-23] MEDS ORDERED: fentaNYL 100 MCG/2 ML INJECTION As Ordered ONE (13:17)
[2024-10-23] MEDS: LIDOCAINE 2% W/EPINEPHRINE 20ML VIAL **PRES FREE As Ordered ONE (13:40)
[2024-10-23] MEDS: TOBRADEX OPHTH OINT 3.5 GM As Ordered ONE (13:50)
[2024-10-23] MEDS ORDERED: propofoL 200 MG/20 ML VIAL As Ordered ONE (13:51)
[2024-10-23] MEDS: POVIDONE-IODINE 5% OPHTH PREP SOL 30ML As Ordered ONE (13:55)
[2024-10-23 13:58] VITALS: BP 121/68; TEMP 97.6; O2SAT 97
== END 2024-10-23 14:17 | disposition home or self-care (01) ==
LOC: M SDC 11:45
PROVIDERS: ATTEND Ophthalmology
DX: H00.11 Chalazion right upper eyelid (principal)
CPT/HCPCS: 67801; 81025; J2250; J3010

== ENCOUNTER → 2025-05-26 | Outpatient (CLI) | payer BC ==
[~2025-05-26] MED LIST changes: +THERTAB52 PO
== END ==
LOC: M WHC 08:58
PROVIDERS: ATTEND Family Medicine
DX: N60.12 Diffuse cystic mastopathy of left breast (principal); R92.313 Mammographic fatty tissue density, bilateral breasts
CPT/HCPCS: 76642; 77066; G0279